=== PATIENT | female | born 1970 | race American Indian/Alaskan Native ===

== ENCOUNTER 2017-03-11 14:57 | Outpatient (CLI) | payer BC ==
--- NOTE | 2017-03-11 16:20 | Ultrasound Report ---
Bilateral mammogram and right breast ultrasound: Patient presents with a decreasing palpable lump in the right periareolar location. Routine mammographic images are obtained with a marker in place followed by a spot compression lateral view with marker removed. Comparison is made to her prior mammogram in March 2016 and January 2015. Stable nodular densities are noted in the right superior breast. There is an intermediate upper glandular density pattern which is generally symmetric and otherwise unremarkable as well as unchanged. There is no identified mass or architectural change related to the marker. There is no skin thickening. Right breast ultrasound over the area of concern which is just medial to the nipple demonstrates an inhomogeneously hypoechoic but relatively demarcated area measuring 1 cm in size. There is no internal vascularity. No attenuation or enhancement distal echoes. CAD used. Impression: 1. Stable unremarkable bilateral mammogram. 2. The palpable periareolar nodule is indeterminate on ultrasound. It may represent a complicated cyst in view of its decreased in size with treatment. Recommendation: Clinical followup of palpable finding. If this does not completely resolve followup ultrasound is recommended to reevaluate within 6 months. Otherwise, annual mammogram followup. BI-RADS CATEGORY: 3 = Probably benign ACR BI-RADS MAMMOGRAPHIC CODES: 0 = Needs additional imaging evaluation; 1 = Negative; 2 = Benign; 3 = Probably benign; 4 = Suspicious; 5 = Malignant; 6 = Known biopsy-proven malignancy COMMENT: 1. Dense breast tissue, i.e., adenosis, fibrocystic changes, etc., may obscure an underlying neoplasm. 2. Approximately 10% of cancers are not detected with mammography. 3. A negative mammography report should not delay biopsy if a clinically suspicious mass is present.
== END 2017-03-11 14:58 | disposition home or self-care (01) ==
LOC: MAMMO 14:57
PROVIDERS: ATTEND Obstetrics & Gynecology
DX: N61.0 Mastitis without abscess (principal); N63 Unspecified lump in breast; I10 Essential (primary) hypertension; F17.200 Nicotine dependence, unspecified, uncomplicated
CPT/HCPCS: 76642; G0204; 77066